=== PATIENT | female | born 1970 | race Caucasian/White ===

== ENCOUNTER 2019-01-21 13:48 | Emergency (ER) | payer OTHER ==
--- NOTE | 2019-01-21 14:19 | PDOC ---
Rapid Medical Evaluation Time Seen by Provider: 01/21/19 14:16 Medical Evaluation: Allergies Allergy/AdvReac Type Severity Reaction Status Date / Time No Known Allergies Allergy Verified 01/16/13 10:47 01/21/19 14:16 I have performed a brief in-person evaluation of this patient. The patient presents with a chief compliant of dizziness since yesterday and vomiting today. history of vertigo Pertinent physical exam findings NAD even and unlabored breathing heart s1s2 + photophobia I have ordered the following meclizine The patient will proceed to the ED for further evaluation. Discharge Disposition - Diagnosis Dizziness - Referrals - Patient Instructions - Post Discharge Activity
[2019-01-21] MEDS ORDERED: MECLIZINE HCL 25 MG TABLET (FP) PO ONE (14:20)
[2019-01-21 14:21] VITALS: BP 157/81; PULSE 63; TEMP 98.2; BMI 27.3
[2019-01-21] MEDS ORDERED: MECLIZINE HCL 25 MG TABLET (FP) ONE ×2 (14:46→14:48)
[2019-01-21] MEDS ORDERED: SODIUM CHLORIDE 1,000 ML IV STA (15:18)
[2019-01-21] MEDS ORDERED: METOCLOPRAMIDE HCL INJECTION 10 MG/2 ML VIAL IVPUSH ONE (15:18)
[2019-01-21] MEDS ORDERED: LORazepam 2 MG/ML SDV VIAL ONE (15:31)
[2019-01-21] MEDS ORDERED: METOCLOPRAMIDE HCL INJECTION 10 MG/2 ML VIAL ONE (15:31)
[2019-01-21 15:38] LABS: BASO % 0.9 % (0-2.0); EOS % 0.9 % (0-4.5); HEMATOCRIT 40.1 % (32.4-45.2); HEMOGLOBIN 13.8 GM/dL (10.7-15.3); LYMPH % 19.4 % (8-40); MCH 30.6 pg (25.7-33.7); MCHC 34.5 g/dl (32.0-36.0); MEAN CELL VOLUME 88.6 fl (80-96); MEAN PLT VOLUME 9.6 fl (7.5-11.1); MONO % 6.3 % (3.8-10.2); NEUT % 72.5 % (42.8-82.8); PLATELET COUNT 344 K/MM3 (134-434); RBC 4.53 M/mm3 (3.60-5.2); RDW 12.9 % (11.6-15.6)
--- NOTE | 2019-01-21 15:48 | PDOC ---
History of Present Illness - General Chief Complaint: Lightheaded Stated Complaint: Headache Time Seen by Provider: 01/21/19 14:16 History Source: Patient Exam Limitations: No Limitations - History of Present Illness Initial Comments: 01/21/19 15:41 Patient is 48F with history of HTN and vertigo here toady complaining of dizziness that onset yesterday. Patient reports having episodes of vertigo, last time three months ago, and being diagnosed with peripheral vertigo by her PCP. Patient is coming in today because the symptoms have kept going for 24 hours and she vomited this morning. Patient endorses a headache with slow onset yesterday, now resolved, located bilaterally along her forehead radiating to her neck and back. Denies fevers, chills, neck stiffness. Denies ct scan in past. Denies chest pain, facial droop, weakness, shortness of breath. Past History - Past Medical History Allergies/Adverse Reactions: Allergies Allergy/AdvReac Type Severity Reaction Status Date / Time No Known Allergies Allergy Verified 01/21/19 14:16 Home Medications: Ambulatory Orders Hydrochlorothiazide [Hctz] 25 mg PO DAILY #30 tablet 01/16/13 Meclizine HCl [Antivert -] 25 mg PO TID #21 tablet 01/21/19 COPD: No HTN: Yes (patient non compliant with hctc for several mos) - Surgical History Abdominal Surgery: (denies any prior surgeries) - Immunization History Immunization Up to Date: Yes - Suicide/Smoking/Psychosocial Hx Smoking Status: No Smoking History: Never smoked Number of Cigarettes Smoked Daily: 0 Hx Alcohol Use: No Drug/Substance Use Hx: No Review of Systems - Review of Systems Able to Perform ROS?: Yes Comments:: 01/21/19 15:51 GENERAL/CONSTITUTIONAL: No fever or chills. No weakness. HEAD, EYES, EARS, NOSE AND THROAT: No change in vision. No sore throat. CARDIOVASCULAR: No chest pain or shortness of breath RESPIRATORY: No cough, wheezing, or hemoptysis. GASTROINTESTINAL: No nausea, vomiting, diarrhea or constipation. GENITOURINARY: No dysuria, frequency, or change in urination. MUSCULOSKELETAL: No joint or muscle swelling or pain. No neck or back pain. SKIN: No rash NEUROLOGIC: +headache, +vertigo, no loss of consciousness, or change in strength /sensation. ENDOCRINE: No increased thirst. No abnormal weight change HEMATOLOGIC/LYMPHATIC: No anemia, easy bleeding, or history of blood clots. ALLERGIC/IMMUNOLOGIC: No hives or skin allergy. *Physical Exam - Vital Signs Last Vital Signs Temp Pulse Resp BP Pulse Ox 98.2 F 63 16 157/81 100 01/21/19 14:17 01/21/19 14:17 01/21/19 14:17 01/21/19 14:17 01/21/19 14:17 - Physical Exam Comments: 01/21/19 15:51 GENERAL: Awake, alert, and fully oriented, in no acute distress HEAD: No signs of trauma, normocephalic, atraumatic EYES: PERRLA, +horizontal nystagmus, EOMI, sclera anicteric, conjunctiva clear ENT: Auricles normal inspection, hearing grossly normal, nares patent, oropharynx clear without exudates. Moist mucosa NECK: Normal ROM, supple, no lymphadenopathy, JVD, or masses LUNGS: No distress, speaks full sentences, clear to auscultation bilaterally HEART: Regular rate and rhythm, normal S1 and S2, no murmurs, rubs or gallops, peripheral pulses normal and equal bilaterally. ABDOMEN: Soft, nontender, normoactive bowel sounds. No guarding, no rebound. No masses EXTREMITIES: Normal inspection, Normal range of motion, no edema. No clubbing or cyanosis. NEUROLOGICAL: Cranial nerves II through XII grossly intact. Normal speech, no focal sensorimotor deficits SKIN: Warm, Dry, normal turgor, no rashes or lesions noted. Moderate Sedation - Procedure Monitoring Vital Signs: Procedure Monitoring Vital Signs Temperature 98.2 F 01/21/19 14:17 Pulse Rate 63 01/21/19 14:17 Respiratory Rate 16 01/21/19 14:17 Blood Pressure 157/81 01/21/19 14:17 O2 Sat by Pulse Oximetry (%) 100 01/21/19 14:17 ED Treatment Course - LABORATORY CBC & Chemistry Diagram: 01/21/19 15:29 01/21/19 15:29 - ADDITIONAL ORDERS Additional order review: 01/21/19 15:29 RBC 4.53 MCV 88.6 MCHC 34.5 RDW 12.9 MPV 9.6 Neutrophils % 72.5 Lymphocytes % 19.4 Monocytes % 6.3 Eosinophils % 0.9 Basophils % 0.9 - RADIOLOGY Radiology Studies Ordered: Category Date Time Status HEAD CT WITHOUT CONTRAST [CT] Stat CT Scan 01/21/19 15:20 Ordered - Medications Given in the ED: ED Medications Discontinued Medications Generic Name Dose Route Start Last Admin Trade Name Lisa PRN Reason Stop Dose Admin Lorazepam 1 mg 01/21/19 15:20 01/21/19 15:39 Ativan Injection - IVPUSH 01/21/19 15:21 1 mg ONCE ONE Administration Meclizine HCl 50 mg 01/21/19 14:20 01/21/19 14:47 Antivert - PO 01/21/19 14:21 50 mg ONCE ONE Administration Metoclopramide HCl 10 mg 01/21/19 15:18 01/21/19 15:39 Reglan Injection - IVPUSH 01/21/19 15:19 10 mg ONCE ONE Administration Medical Decision Making - Medical Decision Making 01/21/19 15:52 Patient is 48F with history of vertigo and htn here today with vertigo. Vitals normal and stable. Hx and exam most consistent with peripheral vertigo, but has no prior ct scan in the past. Given 50 antivert with no real effect. Given reglan for vomiting, ativan. 01/21/19 16:40 CBC normal. CMP reassuring. Preg negative. CT head normal. Patient now walking with steady gait. Will discharge home with return precautions and instructions to follow up with PCP. *DC/Admit/Observation/Transfer Diagnosis at time of Disposition: Dizziness - Discharge Dispostion Disposition: HOME Condition at time of disposition: Good Decision to Admit order: No - Prescriptions Prescriptions: Meclizine HCl [Antivert -] 25 mg PO TID #21 tablet - Referrals Referrals: Robby Shelton MD [Primary Care Provider] - Mark Curtis MD [Staff Physician] - - Patient Instructions Printed Discharge Instructions: DI for Benign Paroxysmal Positional Vertigo Additional Instructions: Please follow up with your primary care physician this week. Please follow up with the ENT doctor below. Please return if you have any new, worsening or concerning symptoms, especially fever, facial droop, and leg/arm weakness. - Post Discharge Activity
[2019-01-21 16:17] LABS: ALBUMIN 4.4 g/dl (3.4-5.0); ALK PHOS 73 U/L (45-117); ANION GAP 5 MMOL/L (8-16); BILIRUBIN,TOTAL 0.3 mg/dL (0.2-1); BLOOD UREA NITROGEN 7 mg/dL (7-18); CALCIUM 9.5 mg/dL (8.5-10.1); CHLORIDE 106 mmol/L (98-107); CO2 28 mmol/L (21-32); CREATININE 0.7 mg/dL (0.55-1.3); GLUCOSE,RANDOM 101 mg/dL (74-106); POTASSIUM 4.5 mmol/L (3.5-5.1); SGOT/AST 17 U/L (15-37); SGPT/ALT 22 U/L (13-61); SODIUM 139 mmol/L (136-145); TOT PROT 7.7 g/dl (6.4-8.2)
--- NOTE | 2019-01-21 16:51 | PDOC ---
Attending Attestation - Resident Resident Name: [email or web address] - ED Attending Attestation I have performed the following: I have examined & evaluated the patient, The case was reviewed & discussed with the resident, I agree w/resident's findings & plan, Exceptions are as noted - HPI HPI: 01/21/19 16:45 The patient is a 48 year old female, with a significant PMH of HTN and vertigo, who presents to the emergency department for evaluation of 1 day of dizziness which is worse with standing and moving her head. Pt endorses one episode of N+ V. Pt denies LENZ. Denies ear pain. Denies F/C. Pt states that she usually gets these episodes every 3 months or so. Has not been evaluated by a neurologist and is not on medication. Pt denies any weakness/numbness in any extremity. The patient denies chest pain, shortness of breath, headache and dizziness. Denies fever, chills, nausea, vomit, diarrhea and constipation. Denies dysuria, frequency, urgency and hematuria. Allergies: NKA Social history: None reported PCP: Dr. Shelton - Physicial Exam PE: 01/21/19 16:49 GENERAL: Awake, alert, and fully oriented, in no acute distress. HEAD: No signs of trauma EYES: PERRLA, EOMI, sclera anicteric, conjunctiva clear ENT: Auricles normal inspection, hearing grossly normal, nares patent, oropharynx clear without exudates. Moist mucosa NECK: Nontender, no stepoffs, Normal ROM, supple, no lymphadenopathy, JVD, or masses LUNGS: Breath sounds equal, clear to auscultation bilaterally. No wheezes, and no crackles HEART: Regular rate and rhythm, normal S1 and S2, no murmurs, rubs or gallops ABDOMEN: Soft, nontender, normoactive bowel sounds. No guarding, no rebound. No masses EXTREMITIES: Normal range of motion, no edema. No clubbing or cyanosis. No cords, erythema, or tenderness NEUROLOGICAL: Cranial nerves II through XII intact. 5/5 strength and sensation in all extremities, Normal speech, normal gait, normal cerebellar function SKIN: Warm, Dry, normal turgor, no rashes or lesions noted. - Medical Decision Making 01/21/19 16:49 48 F with vertigo. At time of my evaluation, pt had received meclizine and ativan. Now states she is asymptomatic. Pt with no neuro deficits to suggest CVA. Now with no dizziness, normal gait. CT head unremarkable Labs wnl Pt is well appearing, with normal vitals. Clinically stable for DC at this time. I discussed the physical exam findings, ancillary test results and final diagnoses with the patient. I answered all of the patient's questions. The patient was satisfied with the care received and felt comfortable with the discharge plan and treatment plan. The patient agrees to follow up with the primary care physician within 24-72 hours.
--- NOTE | 2019-01-21 22:42 | EKG ---
Test Reason : Blood Pressure : / mmHG Vent. Rate : 062 BPM Atrial Rate : 062 BPM P-R Int : 160 ms QRS Dur : 070 ms QT Int : 440 ms P-R-T Axes : 035 011 017 degrees QTc Int : 446 ms NORMAL SINUS RHYTHM NORMAL ECG WHEN COMPARED WITH ECG OF 16-JAN-2013 11:10, NO SIGNIFICANT CHANGE WAS FOUND Confirmed by KAILEE WHEELER MD ([id number]) on 01/21/2019 10:41:34 PM Referred By: Confirmed By:KAILEE WHEELER MD
== END 2019-01-21 17:00 | disposition home or self-care (01) ==
LOC: JER 13:48
PROC: 3E033NZ Introduction of Analgesics, Hypnotics, Sedatives into Peripheral Vein, Percutaneous Approach (ICD-10-PCS; principal; 2019-01-21)
PROC: 3E033GC Introduction of Other Therapeutic Substance into Peripheral Vein, Percutaneous Approach (ICD-10-PCS; 2019-01-21)
DX: H81.399 Other peripheral vertigo, unspecified ear (principal); I10 Essential (primary) hypertension; Z91.14 Patient's other noncompliance with medication regimen
CPT/HCPCS: 36415; 70450-TC; 80053; 84702; 85025; 93005; 93010; 96374; 96375; 99284-25; J7030